=== PATIENT | male | born 1995 ===

== ENCOUNTER 2025-08-06 16:28 | Emergency (ER) | payer SELFPAY ==
[2025-08-06] MEDS: buPROPion 150 MG Tab.ER PO ONE (17:27)
== END 2025-08-06 17:32 | disposition home or self-care (01) ==
LOC: MW.ED 16:28
DX: Z76.0 Encounter for issue of repeat prescription (principal); F17.210 Nicotine dependence, cigarettes, uncomplicated; Z79.899 Other long term (current) drug therapy
CPT/HCPCS: 99281; A9270; 99283